=== PATIENT | female | born 1995 | race Caucasian/White ===

== ENCOUNTER 2017-12-25 21:59 | Emergency (ER) | payer BC ==
[2017-12-25 22:20] VITALS: BP 147/93; PULSE 97; TEMP 97.6; BMI 30.4
[2017-12-25 22:49] LABS: BASO % 0.5 % (0-2.0); EOS % 1.4 % (0-4.5); HEMATOCRIT 41.3 % (32.4-45.2); LYMPH % 36.7 % (8-40); MCH 28.2 pg (25.7-33.7); MEAN CELL VOLUME 83.1 fl (80-96); MEAN PLT VOLUME 9.9 fl (7.5-11.1); MONO % 6.1 % (3.8-10.2); NEUT % 55.3 % (42.8-82.8); PLATELET COUNT 278 K/MM3 (134-434); RBC 4.97 M/mm3 (3.60-5.2); WHITE BLOOD COUNT 10.5 K/mm3 (4.0-10.0)
[2017-12-25 22:50] LABS: URINE APPEARANCE CLEAR; URINE BILIRUBIN NEGATIVE (NEGATIVE); URINE BLOOD 2+ (NEGATIVE); URINE COLOR LTYELLOW; URINE GLUCOSE (UA) NEGATIVE (NEGATIVE); URINE KETONE 2+ (NEGATIVE); URINE LEUK ESTERASE TRACE (NEGATIVE); URINE NITRITE NEGATIVE (NEGATIVE); URINE PROTEIN NEGATIVE (NEGATIVE)
[2017-12-25 22:51] LABS: HCG,QUALITATIVE URINE NEGATIVE
[2017-12-25 22:56] LABS: EPI CELLS RARE /HPF (FEW); URINE BACTERIA FEW /hpf (NONE SEEN); URINE MUCUS RARE
[2017-12-25 23:10] LABS: ALBUMIN 3.9 g/dl (3.4-5.0); ALK PHOS 62 U/L (45-117); ANION GAP 11 (8-16); BILIRUBIN,TOTAL 0.4 mg/dL (0.2-1.0); BLOOD UREA NITROGEN 13 mg/dL (7-18); CALCIUM 9.6 mg/dL (8.5-10.1); CHLORIDE 102 mmol/L (98-107); CO2 27 mmol/L (21-32); CREATININE 0.8 mg/dL (0.55-1.02); GLUCOSE,RANDOM 82 mg/dL (74-106); POTASSIUM 3.8 mmol/L (3.5-5.1); SGOT/AST 16 U/L (15-37); SGPT/ALT 20 U/L (12-78); SODIUM 140 mmol/L (136-145); TOT PROT 7.6 g/dl (6.4-8.2)
--- NOTE | 2017-12-26 00:18 | PDOC ---
History of Present Illness - General Chief Complaint: Pain, Acute Stated Complaint: PAIN Time Seen by Provider: 12/26/17 00:16 History Source: Patient - History of Present Illness Initial Comments: 12/26/17 00:32 20 year old 22-year-old female with history of ovarian cyst complaining of nausea since 12/25 morning and right lower quadrant pain 12/25 afternoon that's worse with walking in the back. Patient denies vomiting, diarrhea, flank pain, urinary symptoms, pelvic pain. LMP 2 weeks ago. Past surgical history includes ovarian cyst removal Past History - Past Medical History Allergies/Adverse Reactions: Allergies Allergy/AdvReac Type Severity Reaction Status Date / Time acetaminophen [From Percocet] Allergy Verified 12/25/17 22:20 erythromycin base Allergy Verified 11/01/16 15:19 morphine Allergy Verified 12/25/17 22:21 oxycodone [From Percocet] Allergy Verified 12/25/17 22:20 Penicillins Allergy Verified 12/25/17 22:21 walnut Allergy Verified 11/01/16 15:19 Home Medications: Ambulatory Orders Albuterol Sulfate [Proventil HFA Inhaler -] 1 - 2 inh PO TID PRN 11/01/16 Cephalexin [Keflex] 500 mg PO BID #14 capsule 11/01/16 Mag Hydrox/Al Hydrox/Simeth [Mylanta Suspension -] 30 ml PO Q6H PRN #1 bottle Norethindrone-E.estradiol-Iron [Junel Fe 1 mg-20 Mcg Tablet] 1 each PO ASDIR Pantoprazole Sodium [Protonix] 40 mg PO DAILY #30 tablet. 11/01/16 Ranitidine HCl [Zantac] 150 mg PO BID PRN #14 tablet 11/01/16 Docusate Sodium [Colace] 100 mg PO BID #30 capsule 12/26/17 Polyethylene Glycol 3350 [Miralax (For Daily Use) -] 17 gm PO BID #1 bottle COPD: No Disorders: Yes (ovarian cysts) - Surgical History Abdominal Surgery: Yes - Suicide/Smoking/Psychosocial Hx Smoking History: Never smoked Have you smoked in the past 12 months: No Information on smoking cessation initiated: No Hx Alcohol Use: No Drug/Substance Use Hx: No Review of Systems - Review of Systems Able to Perform ROS?: Yes Is the patient limited Citizen Of [place] proficient: No ABD/GI: Yes: Nausea, Abdominal cramping (RLQ). No: Symptoms Reported, See HPI, Abdominal Distended, Abd. Pain w/ defecation, Blood Streaked Bowels, Constipated , Diarrhea, Difficulty Swallowing, Poor Appetite, Poor Fluid Intake, Rectal Bleeding, Vomiting, Indigestion, Tarry Stools, Other : No: Symptoms Reported, See HPI, Burning, Dysuria, Discharge, Frequency, Flank Pain, Hematuria, Incontinence, Pain, Urgency, Testicular Mass, Testicular Swelling, Lesions, Testicular Pain, Other *Physical Exam - Vital Signs Last Vital Signs Temp Pulse Resp BP Pulse Ox 97.6 F 97 H 20 147/93 98 12/25/17 22:17 12/25/17 22:17 12/25/17 22:17 12/25/17 22:17 12/25/17 22:17 - Physical Exam General Appearance: Yes: Appropriately Dressed Female Pelvic Exam: positive: normal external exam. negative: adnexal tenderness Gastrointestinal/Abdominal: positive: Soft, Decreased BS, Guarding, Rebound, Other (+ mcburnery, Psoas, + rosvigs) Extremity: positive: Normal Capillary Refill, Normal Inspection, Normal Range of Motion Integumentary: positive: Normal Color, Dry, Warm Neurologic: positive: Alert, Normal Mood/Affect ED Treatment Course - LABORATORY CBC & Chemistry Diagram: 12/25/17 22:30 12/25/17 22:30 - ADDITIONAL ORDERS Additional order review: Laboratory Results 12/25/17 12/25/17 22:30 22:30 Sodium 140 Potassium 3.8 Chloride 102 Carbon Dioxide 27 Anion Gap 11 BUN 13 Creatinine 0.8 Creat Clearance w eGFR > 60 Random Glucose 82 Calcium 9.6 Total Bilirubin 0.4 AST 16 ALT 20 Alkaline Phosphatase 62 Total Protein 7.6 Albumin 3.9 Urine Color Ltyellow Urine Appearance Clear Urine pH 5.0 Ur Specific [place] 1.023 Urine Protein Negative Urine Glucose (UA) Negative Urine Ketones 2+ H Urine Blood 2+ H Urine Nitrite Negative Urine Bilirubin Negative Urine Urobilinogen 2.0 H Ur Leukocyte Esterase Trace Urine WBC (Auto) 3 Urine RBC (Auto) 5 Ur Epithelial Cells Rare Urine Bacteria Few Urine Mucus Rare Urine HCG, Qual Negative 12/25/17 22:30 RBC 4.97 MCV 83.1 MCHC 34.0 RDW 13.0 MPV 9.9 Neutrophils % 55.3 Lymphocytes % 36.7 Monocytes % 6.1 Eosinophils % 1.4 Basophils % 0.5 Progress Note - Progress Note Progress Note: A: Abdominal pain r/o appendicitis P: cbc cmp ua type and screen IVF NPO CTAP: there is no bowel obstruction, free air or free fluid. normal appendix visualized. negative for diverticulitis or lcitis. abundant stool noted in the colon. 2.4 cm left adenxal cyst. Medical Decision Making - Medical Decision Making 12/26/17 03:59 patient now reports that she has been on a strict high vegetarian diet for 3 weeks with poor po water. *DC/Admit/Observation/Transfer Diagnosis at time of Disposition: Abdominal pain Qualifiers: Abdominal location: right lower quadrant Qualified Code(s): R10.31 - Right lower quadrant pain Constipation Qualifiers: Constipation type: slow transit constipation Qualified Code(s): K59.01 - Slow transit constipation - Discharge Dispostion Disposition: HOME - Prescriptions Prescriptions: Docusate Sodium [Colace] 100 mg PO BID #30 capsule Polyethylene Glycol 3350 [Miralax (For Daily Use) -] 17 gm PO BID #1 bottle - Referrals Referrals: Cici Sofia [Primary Care Provider] - - Patient Instructions Printed Discharge Instructions: Constipation (Alternative Therapy) Additional Instructions: drink plenty of fluids take miralax and colace as prescribed. follow up with your doctor as soon as possible. return to the ER if symptoms worsen. - Post Discharge Activity Forms/Work/School Notes: Back to School
[2017-12-26] MEDS ORDERED: ONDANSETRON 4 MG/2 ML VIAL IVPUSH ONE (00:19)
[2017-12-26] MEDS ORDERED: SODIUM CHLORIDE 1,000 ML IV STA (00:19)
[2017-12-26] MEDS ORDERED: ACETAMINOPHEN 1000 MG/100 ML VIAL (NON FORMULARY) IVPB ONE (00:27)
[2017-12-26] MEDS ORDERED: ONDANSETRON 4 MG/2 ML VIAL ONE (00:56)
[2017-12-26] MEDS ORDERED: ACETAMINOPHEN INJECTION 100 ML IVPB ONE (01:46)
[2017-12-26] MEDS ORDERED: SODIUM CHLORIDE 1,000 ML IV SCH (02:15)
[2017-12-26] MEDS ORDERED: MAGNESIUM CITRATE 300 ML BOTTLE PO ONE (03:46)
[2017-12-26] MEDS ORDERED: MAG HYDROX/AL HYDROX/SIMETH 30 ML UNIT-DOSE CUP PO ONE (03:46)
[2017-12-26] MEDS ORDERED: MAGNESIUM CITRATE 300 ML BOTTLE ONE (03:49)
[2017-12-26] MEDS ORDERED: MAG HYDROX/AL HYDROX/SIMETH 30 ML UNIT-DOSE CUP ONE (03:49)
== END 2017-12-26 04:42 | disposition home or self-care (01) ==
LOC: JER 21:59
PROC: 3E0337Z Introduction of Electrolytic and Water Balance Substance into Peripheral Vein, Percutaneous Approach (ICD-10-PCS; principal; 2017-12-25)
PROC: 3E033NZ Introduction of Analgesics, Hypnotics, Sedatives into Peripheral Vein, Percutaneous Approach (ICD-10-PCS; 2017-12-25)
PROC: 3E033GC Introduction of Other Therapeutic Substance into Peripheral Vein, Percutaneous Approach (ICD-10-PCS; 2017-12-25)
DX: K59.01 Slow transit constipation (principal); N83.202 Unspecified ovarian cyst, left side
CPT/HCPCS: 36415; 74177-TC; 80053; 81003; 81015; 84703; 85025; 86850; 86900; 86901; 99282-25

== ENCOUNTER 2019-10-09 15:16 | Emergency (ER) | payer BC ==
[2019-10-09 15:26] VITALS: TEMP 98.1; BMI 32.5
[2019-10-09] MEDS ORDERED: SODIUM CHLORIDE 1,000 ML IV STA (15:32)
[2019-10-09] MEDS ORDERED: ACETAMINOPHEN 1000 MG/100 ML VIAL (NON FORMULARY) IVPB ONE (15:32)
--- NOTE | 2019-10-09 15:45 | PDOC ---
History of Present Illness - General Chief Complaint: Pain, Acute Stated Complaint: R SIDE ABD PAIN Time Seen by Provider: 10/09/19 15:19 - History of Present Illness Initial Comments: 10/09/19 15:32 24 F with h/o kidney stones, ovarian cysts, presenting to ED with 2 weeks of RLQ pain. Pt states that it began with symptoms similar to a UTI. She reports dysuria and urinary frequency. She went to her assembler adjuster who started her on cipro but DC'ed it 4 days later when her urine culture came back negative. Pt states that her pain did not improve while on the cipro. Since then, the pain has been persistent, sometimes associated with nausea. Pt denies vomiting. Denies constipation/diarrhea. Denies F/C. Pt was at her OB again today for evaluation of possible ovarian cyst. Pt was found to have a L ovarian cyst but none on the right. Pt was subsequently sent to ED for further evaluation. Past History - Past Medical History Allergies/Adverse Reactions: Allergies Allergy/AdvReac Type Severity Reaction Status Date / Time acetaminophen [From Percocet] Allergy Verified 10/09/19 15:34 azithromycin Allergy Verified 10/09/19 15:34 erythromycin base Allergy Verified 10/09/19 15:34 morphine Allergy Verified 10/09/19 15:34 oxycodone [From Percocet] Allergy Verified 10/09/19 15:34 Penicillins Allergy Verified 10/09/19 15:34 walnut Allergy Verified 10/09/19 15:34 MYOCINS Allergy Uncoded 10/09/19 15:34 Home Medications: Ambulatory Orders Albuterol Sulfate [Proventil HFA Inhaler -] 1 - 2 inh PO TID PRN 11/01/16 Cephalexin [Keflex] 500 mg PO BID #14 capsule 11/01/16 Mag Hydrox/Al Hydrox/Simeth [Mylanta Suspension -] 30 ml PO Q6H PRN #1 bottle Norethindrone-E.estradiol-Iron [Junel Fe 1 mg-20 Mcg Tablet] 1 each PO ASDIR Pantoprazole Sodium [Protonix] 40 mg PO DAILY #30 tablet. 11/01/16 Ranitidine HCl [Zantac] 150 mg PO BID PRN #14 tablet 11/01/16 Docusate Sodium [Colace] 100 mg PO BID #30 capsule 12/26/17 Polyethylene Glycol 3350 [Miralax (For Daily Use) -] 17 gm PO BID #1 bottle COPD: No Disorders: Yes (ovarian cysts) - Surgical History Abdominal Surgery: Yes - Psycho Social/Smoking Cessation Hx Smoking History: Never smoked Have you smoked in the past 12 months: No Hx Alcohol Use: No Drug/Substance Use Hx: No Review of Systems - Review of Systems Comments:: 10/09/19 15:45 "GENERAL/CONSTITUTIONAL: No fever or chills. No weakness. HEAD, EYES, EARS, NOSE AND THROAT: No change in vision. No ear pain or discharge. No sore throat. CARDIOVASCULAR: No chest pain, no shortness of breath, no loss of consciousness RESPIRATORY: No cough, wheezing, or hemoptysis. GASTROINTESTINAL: + RLQ pain, No nausea, vomiting, diarrhea or constipation. GENITOURINARY: + dysuria and frequency MUSCULOSKELETAL: No joint or muscle swelling or pain. No neck or back pain. SKIN: No rash NEUROLOGIC: No vertigo, no change in strength/sensation. ENDOCRINE: No increased thirst. No abnormal weight change. HEMATOLOGIC/LYMPHATIC: No anemia, easy bleeding, or history of blood clots. ALLERGIC/IMMUNOLOGIC: No hives or skin allergy. *Physical Exam - Vital Signs Last Vital Signs Temp Pulse Resp BP Pulse Ox 98.1 F 76 18 140/94 100 10/09/19 15:17 10/09/19 15:17 10/09/19 15:17 10/09/19 15:17 10/09/19 15:17 - Physical Exam 10/09/19 15:45 "GENERAL: Awake, alert, and fully oriented, in no acute distress. HEAD: No signs of trauma EYES: PERRLA, EOMI, sclera anicteric, conjunctiva clear ENT: Auricles normal inspection, hearing grossly normal, nares patent, oropharynx clear without exudates. Moist mucosa NECK: Nontender, no stepoffs, Normal ROM, supple, no lymphadenopathy, JVD, or masses LUNGS: Breath sounds equal, clear to auscultation bilaterally. No wheezes, and no crackles HEART: Regular rate and rhythm, normal S1 and S2, no murmurs, rubs or gallops ABDOMEN: + RLQ TTP, normoactive bowel sounds. No guarding, no rebound. No masses EXTREMITIES: Normal range of motion, no edema. No clubbing or cyanosis. No cords, erythema, or tenderness NEUROLOGICAL: Cranial nerves II through XII intact. 5/5 strength and sensation in all extremities, Normal speech, normal gait, normal cerebellar function SKIN: Warm, Dry, normal turgor, no rashes or lesions noted. : no CMT, no adnexal tenderness or masses ED Treatment Course - LABORATORY CBC & Chemistry Diagram: 10/09/19 15:40 10/09/19 15:40 - RADIOLOGY Radiology Studies Ordered: Category Date Time Status ABDOMEN & PELVIS CT WITH CONTR [CT] Stat CT Scan 10/09/19 15:32 Ordered Medical Decision Making - Medical Decision Making 10/09/19 15:46 24 F with RLQ pain x 2 weeks. Possible kidney stone. Will also r/o appy, though less likely. - Labs, UA, UPT - CTAP - IVF, tylenol 10/09/19 18:06 UA with + blood Labs otherwise wnl CT pending Discharge - Discharge Information Problems reviewed: Yes Clinical Impression/Diagnosis: Right flank pain Condition: Stable Disposition: HOME - Follow up/Referral - Patient Discharge Instructions Additional Instructions: Take Tylenol or Motrin as needed for the pain. Return to the emergency department immediately with ANY new, persistent or worsening symptoms. Continue any medications as previously prescribed by your physician. You should follow up with your OB doctor as soon as possible regarding today's emergency department visit. Have your OB doctor follow-up with the culture results and treat you if the culture shows a significant amount of bacteria in your urine. . Please make sure your doctor reviews the results of your emergency evaluation. Thank you for coming to the Emergency Department today for your care. It was a pleasure to see you today. Please note that your evaluation is INCOMPLETE until you follow-up with your doctor. - Post Discharge Activity
[2019-10-09] MEDS ORDERED: ACETAMINOPHEN INJECTION 100 ML IVPB ONE (15:50)
[2019-10-09 16:23] LABS: BASO % 0.6 % (0-2.0); EOS % 2.1 % (0-4.5); LYMPH % 30.1 % (8-40); MCH 28.6 pg (25.7-33.7); MCHC 33.4 g/dl (32.0-36.0); MEAN CELL VOLUME 85.7 fl (80-96); MEAN PLT VOLUME 10.2 fl (7.5-11.1); MONO % 4.6 % (3.8-10.2); NEUT % 62.6 % (42.8-82.8); PLATELET COUNT 308 K/MM3 (134-434); RDW 11.9 % (11.6-15.6)
[2019-10-09 16:29] LABS: BILIRUBIN,TOTAL 0.3 mg/dl (0.2-1); CALCIUM 9.1 mg/dl (8.5-10); CREATININE 0.7 mg/dl (0.55-1.3); POTASSIUM 3.9 mmol/L (3.5-5.1); TOT PROT 7.4 g/dl (6.4-8.2)
[2019-10-09 18:47] LABS: EPITHELIAL CELLS FEW /hpf
--- NOTE | 2019-10-09 19:16 | PDOC ---
*Physical Exam - Vital Signs Last Vital Signs Temp Pulse Resp BP Pulse Ox 98.1 F 76 18 140/94 100 10/09/19 15:17 10/09/19 15:17 10/09/19 15:17 10/09/19 15:17 10/09/19 15:17 ED Treatment Course - LABORATORY CBC & Chemistry Diagram: 10/09/19 15:40 10/09/19 15:40 - ADDITIONAL ORDERS Additional order review: Laboratory Results 10/09/19 10/09/19 10/09/19 15:45 15:45 15:40 Sodium Potassium Chloride Carbon Dioxide Anion Gap BUN Creatinine Est GFR (CKD-EPI)AfAm Est GFR (CKD-EPI)NonAf Random Glucose Calcium Total Bilirubin AST ALT Alkaline Phosphatase Total Protein Albumin Lipase 217 Urine Color Yellow Urine Appearance Clear Urine pH 5.5 Urine Protein Negative Urine Glucose (UA) Negative Urine Ketones Negative Urine Blood 3+ H Urine Nitrite Negative Urine Bilirubin Negative Urine Urobilinogen 0.2 Ur Leukocyte Esterase Negative Urine RBC 5-10 Urine WBC 0-2 Ur Transition Epith Cell Few Urine Bacteria Moderate Urine HCG, Qual Negative 10/09/19 15:40 Sodium 135 L Potassium 3.9 Chloride 106 Carbon Dioxide 25 Anion Gap 4 L BUN 9.0 Creatinine 0.7 Est GFR (CKD-EPI)AfAm 142.54 Est GFR (CKD-EPI)NonAf 122.98 Random Glucose 99 Calcium 9.1 Total Bilirubin 0.3 AST 16 ALT 17 Alkaline Phosphatase 61 Total Protein 7.4 Albumin 4.0 Lipase Urine Color Urine Appearance Urine pH Urine Protein Urine Glucose (UA) Urine Ketones Urine Blood Urine Nitrite Urine Bilirubin Urine Urobilinogen Ur Leukocyte Esterase Urine RBC Urine WBC Ur Transition Epith Cell Urine Bacteria Urine HCG, Qual 10/09/19 15:40 RBC 4.90 MCV 85.7 MCHC 33.4 RDW 11.9 MPV 10.2 Neutrophils % 62.6 Lymphocytes % 30.1 Monocytes % 4.6 Eosinophils % 2.1 Basophils % 0.6 - Medications Given in the ED: ED Medications Discontinued Medications Generic Name Dose Route Start Last Admin Trade Name Freq PRN Reason Stop Dose Admin Acetaminophen 1,000 mg 10/09/19 15:32 10/09/19 15:55 Ofirmev Injection - IVPB 10/09/19 15:33 1,000 mg ONCE ONE Administration Sodium Chloride 1,000 mls @ 1,000 mls/hr 10/09/19 15:32 10/09/19 15:55 Normal Saline - IV 10/09/19 16:31 1,000 mls/hr ASDIR STA Administration ED Progress Note - Progress Note Progress Note: 10/09/19 19:16 Care of this patient was transferred to me from Dr. pena at 1900 hrs. Patient is a 24-year-old female with history of renal colic in the past. Patient has a work-up pending to rule out renal colic. We will follow-up work-up including CAT scan. 10/09/19 19:57 CAT scan was negative for any acute pathology that does show a left ovarian cyst which patient was already aware of that she had seen her OB today and was told that there was a left ovarian cyst that was seen on ultrasound at her OBs office. Otherwise there was some bacteria in the urine however given the fact that she was recently treated with an antibiotic for possible UTI and then told to stop because the culture came back negative for a significant bacteriuria. I have recommended that patient follow-up with her OB and have the OB follow-up the culture and if it is significant to give her antibiotic directed treatment. Patient given copy of the CAT scan and discharged home will follow-up with OB Discharge - Discharge Information Problems reviewed: Yes Clinical Impression/Diagnosis: Right flank pain Condition: Stable Disposition: HOME - Admission No - Follow up/Referral - Patient Discharge Instructions Additional Instructions: Take Tylenol or Motrin as needed for the pain. Return to the emergency department immediately with ANY new, persistent or worsening symptoms. Continue any medications as previously prescribed by your physician. You should follow up with your OB doctor as soon as possible regarding today's emergency department visit. Have your OB doctor follow-up with the culture results and treat you if the culture shows a significant amount of bacteria in your urine. . Please make sure your doctor reviews the results of your emergency evaluation. Thank you for coming to the Emergency Department today for your care. It was a pleasure to see you today. Please note that your evaluation is INCOMPLETE until you follow-up with your doctor. - Post Discharge Activity
[2019-10-09 20:01] VITALS: BP 140/100; PULSE 63
== END 2019-10-09 20:01 | disposition home or self-care (01) ==
LOC: FER 15:16
PROC: 3E033NZ Introduction of Analgesics, Hypnotics, Sedatives into Peripheral Vein, Percutaneous Approach (ICD-10-PCS; principal; 2019-10-09)
DX: R10.31 Right lower quadrant pain (principal); Z88.8 Allergy status to other drugs, medicaments and biological substances; Z88.6 Allergy status to analgesic agent; N83.209 Unspecified ovarian cyst, unspecified side
CPT/HCPCS: 36415; 74177-TC; 80053; 81003; 81015; 83690; 84703; 85025; 87086; 99284-25; J0131; J7030; Q9967

== ENCOUNTER 2023-03-12 14:47 | Emergency (ER) | payer BC, OTHER ==
[2023-03-12 15:00] VITALS: BP 138/98; PULSE 88; RESP 16; TEMP 98.1; BMI 31.7
[2023-03-12] MEDS ORDERED: ACETAMINOPHEN 500 MG TABLET (FP) PO ONE (15:24)
[2023-03-12] MEDS ORDERED: ACETAMINOPHEN 500 MG TABLET (FP) ONE (15:38)
[2023-03-12 15:43] LABS: HEMATOCRIT 40.7 % (32.4-45.2); HEMOGLOBIN 13.8 G/dL (10.7-15.3); MCH 28.4 pg (25.7-33.7); MCHC 33.8 g/dl (32.0-36.0); MEAN CELL VOLUME 84.1 fl (80-96); MEAN PLT VOLUME 10.2 fl (7.5-11.1); PLATELET COUNT 273.9 10^3/uL (134-434); RBC 4.84 10^6/uL (3.60-5.2); RDW 13.7 % (11.6-15.6); WHITE BLOOD COUNT 8.9 10^3/uL (4.0-10.8)
[2023-03-12 16:02] LABS: PLATELET ESTIMATE ADEQUATE
[2023-03-12 16:10] LABS: ALBUMIN 4.3 g/dl (3.4-5.0); ALK PHOS 60 U/L (45-117); ANION GAP 8 MMOL/L (8-16); BILIRUBIN,TOTAL 0.4 mg/dl (0.2-1); CALCIUM 9.4 mg/dl (8.5-10); CHLORIDE 104 mmol/L (98-107); CO2 23 mmol/L (21-32); CREATININE 0.9 mg/dl (0.55-1.3); GLUCOSE,RANDOM 84 mg/dl (74-106); MAGNESIUM 1.8 mg/dL (1.8-2.4); POTASSIUM 3.9 mmol/L (3.5-5.1); SGOT/AST 16 U/L (15-37); SGPT/ALT 16 U/L (13-61); SODIUM 135 mmol/L (136-145); TOT PROT 7.3 g/dl (6.4-8.2)
[2023-03-12] MEDS ORDERED: KETOROLAC TROMETHAMINE 30 MG/1 ML VIAL IVPUSH ONE (16:11)
[2023-03-12] MEDS ORDERED: KETOROLAC TROMETHAMINE 30 MG/1 ML VIAL ONE (16:19)
[2023-03-12 17:07] LABS: LIPASE 268 U/L (73-393)
== END 2023-03-12 17:15 | disposition home or self-care (01) ==
LOC: FER 14:47
PROC: 3E0333Z Introduction of Anti-inflammatory into Peripheral Vein, Percutaneous Approach (ICD-10-PCS; principal; 2023-03-12)
DX: M94.0 Chondrocostal junction syndrome [Tietze] (principal)
CPT/HCPCS: 36415; 71045-TC-FY; 80053; 81025; 83690; 83735; 84484; 85025; 93005; 99285-25

== ENCOUNTER 2023-10-04 08:10 | Emergency (ER) | payer BC, OTHER ==
[2023-10-04] MEDS ORDERED: KETOROLAC TROMETHAMINE 15 MG/ML VIAL IM ONE (08:22)
[2023-10-04] MEDS ORDERED: KETOROLAC TROMETHAMINE 15 MG/ML VIAL ONE (08:31)
[2023-10-04 08:43] VITALS: BP 121/79; PULSE 82; RESP 18; TEMP 99.1; BMI 32.5
== END 2023-10-04 09:22 | disposition home or self-care (01) ==
LOC: FER 08:10
PROC: 3E0233Z Introduction of Anti-inflammatory into Muscle, Percutaneous Approach (ICD-10-PCS; principal; 2023-10-04)
DX: M79.661 Pain in right lower leg (principal); W10.8XXA Fall (on) (from) other stairs and steps, initial encounter; X50.1XXA Overexertion from prolonged static or awkward postures, initial encounter
CPT/HCPCS: 73590-TC-RT-FY; 73610-TC-RT-FY; 73630-TC-RT-FY; 99284-25